=== PATIENT | male | born 1995 | race Two or more races ===

== ENCOUNTER 2023-08-12 17:52 | Emergency (ER) | payer BC ==
[2023-08-12 17:59] VITALS: BP 136/68; PULSE 89; RESP 18; TEMP 99.1; BMI 28.0
[2023-08-12] MEDS ORDERED: ONDANSETRON 4 MG/2 ML VIAL IVPUSH ONE (19:02)
[2023-08-12] MEDS ORDERED: SODIUM CHLORIDE 0.9% 500 ML INFUS.BAG IV ONE (19:02)
[2023-08-12] MEDS ORDERED: KETOROLAC TROMETHAMINE 30 MG/1 ML VIAL IVPUSH ONE (19:02)
[2023-08-12] MEDS ORDERED: FAMOTIDINE 20 MG/50 ML IVPB 20 MG/50 ML MG IVPB ONE ×2 (19:02→19:56)
[2023-08-12 19:16] LABS: BASO % 0.3 % (0-2.0); HEMATOCRIT 46.5 % (35.4-49); HEMOGLOBIN 15.8 GM/dL (11.7-16.9); LYMPH % 7.9 % (8-40); MCH 28.5 pg (25.7-33.7); MEAN CELL VOLUME 83.9 fl (80-96); MEAN PLT VOLUME 8.7 fl (7.5-11.1); MONO % 5.1 % (3.8-10.2); NEUT % 86.7 % (42.8-82.8); PLATELET COUNT 235 10^3/uL (134-434); RBC 5.54 M/mm3 (4.00-5.60); RDW 13.8 % (11.9-15.9); WHITE BLOOD COUNT 16.7 K/mm3 (4.0-10.0)
[2023-08-12 19:47] LABS: POTASSIUM 3.5 mmol/L (3.5-5.1)
[2023-08-12 19:50] LABS: ALBUMIN 4.1 g/dl (3.4-5.0); BLOOD UREA NITROGEN 8.1 mg/dL (7-18)
[2023-08-12 19:53] LABS: CREATININE 0.8 mg/dL (0.55-1.3)
[2023-08-12 19:55] LABS: BILIRUBIN,TOTAL 1.6 mg/dL (0.2-1)
[2023-08-12] MEDS ORDERED: ONDANSETRON 4 MG/2 ML VIAL ONE (19:56)
[2023-08-12] MEDS ORDERED: KETOROLAC TROMETHAMINE 30 MG/1 ML VIAL ONE (19:56)
[2023-08-12 20:30] LABS: HIV INTERPRETATION NEGATIVE (NEGATIVE)
[2023-08-12 20:34] LABS: SYPHILIS W/ RPR CONF REACTIVE (NONREACTIVE)
[2023-08-12 20:57] LABS: EPI CELLS >36 /uL (0-25.1); HYALINE CASTS 14 /uL (0-3.1); PH,URINE 7.5 (5.0-8.0); URINE APPEARANCE CLEAR; URINE BACTERIA 82 /uL (0-1359); URINE BILIRUBIN NEGATIVE (NEGATIVE); URINE COLOR YELLOW; URINE GLUCOSE (UA) NEGATIVE (NEGATIVE); URINE KETONE 1+ (NEGATIVE); URINE LEUK ESTERASE 3+ (NEGATIVE); URINE NITRITE NEGATIVE (NEGATIVE); URINE PROTEIN 1+ (NEGATIVE); URINE RBC 54 /uL (0-23.9); URINE WBC 436 /uL (0-25.8)
[2023-08-12] MEDS ORDERED: DOXYCYCLINE HYCLATE 100 MG CAPSULE PO ONE ×2 (22:00→22:16)
[2023-08-12] MEDS ORDERED: PENICILLIN G BENZATHINE 2,400,000 UNIT/4 ML PFS IM ONE (22:00)
[2023-08-12] MEDS ORDERED: cefTRIAXone SODIUM 1 GM VIAL ONE (22:16)
[2023-08-12] MEDS ORDERED: LIDOCAINE HCL/PF 1% SDV 5ML VIAL ONE (22:42)
== END 2023-08-13 00:06 | disposition home or self-care (01) ==
LOC: JER 17:52
PROC: 3E033GC Introduction of Other Therapeutic Substance into Peripheral Vein, Percutaneous Approach (ICD-10-PCS; principal; 2023-08-12)
PROC: 3E0333Z Introduction of Anti-inflammatory into Peripheral Vein, Percutaneous Approach (ICD-10-PCS; 2023-08-12)
PROC: 3E033GC Introduction of Other Therapeutic Substance into Peripheral Vein, Percutaneous Approach (ICD-10-PCS; 2023-08-12)
PROC: 3E02329 Introduction of Other Anti-infective into Muscle, Percutaneous Approach (ICD-10-PCS; 2023-08-12)
PROC: 3E02329 Introduction of Other Anti-infective into Muscle, Percutaneous Approach (ICD-10-PCS; 2023-08-12)
DX: R10.31 Right lower quadrant pain (principal); N50.811 Right testicular pain; R11.2 Nausea with vomiting, unspecified; A53.9 Syphilis, unspecified
CPT/HCPCS: 36415; 74177-TC; 76870-TC; 80053; 81003; 85025; 86593; 86780; 86803; 87389; 87491; 87591; 99285-25; Q9967

== ENCOUNTER 2023-09-19 07:02 | Emergency (ER) | payer BC ==
[2023-09-19 07:21] VITALS: TEMP 98.3; BMI 28.3
[2023-09-19] MEDS ORDERED: SODIUM CHLORIDE 1,000 ML IV STA (08:08)
[2023-09-19] MEDS ORDERED: ACETAMINOPHEN 1000 MG/100 ML BAG IVPB ONE (08:08)
[2023-09-19] MEDS ORDERED: METOCLOPRAMIDE HCL INJECTION 10 MG/2 ML VIAL IVPUSH ONE (08:09)
[2023-09-19 08:21] LABS: BASO % 0.4 % (0-2.0); EOS % 1.6 % (0-4.5); HEMATOCRIT 42.9 % (35.4-49); HEMOGLOBIN 14.5 GM/dL (11.7-16.9); LYMPH % 24.1 % (8-40); MCH 28.9 pg (25.7-33.7); MCHC 33.7 g/dl (32.0-35.9); MEAN CELL VOLUME 85.8 fl (80-96); MEAN PLT VOLUME 8.4 fl (7.5-11.1); MONO % 7.6 % (3.8-10.2); NEUT % 66.3 % (42.8-82.8); PLATELET COUNT 230 10^3/uL (134-434); RDW 13.9 % (11.9-15.9); WHITE BLOOD COUNT 7.9 K/mm3 (4.0-10.0)
[2023-09-19 08:51] LABS: POTASSIUM 4.4 mmol/L (3.5-5.1)
[2023-09-19] MEDS ORDERED: METOCLOPRAMIDE HCL INJECTION 10 MG/2 ML VIAL ONE (08:52)
[2023-09-19 08:53] LABS: CALCIUM 8.8 mg/dL (8.5-10.1)
[2023-09-19 08:54] LABS: ALBUMIN 3.9 g/dl (3.4-5.0); BLOOD UREA NITROGEN 9.9 mg/dL (7-18)
[2023-09-19 08:57] LABS: CREATININE 0.8 mg/dL (0.55-1.3)
[2023-09-19 09:00] LABS: BILIRUBIN,TOTAL 1.1 mg/dL (0.2-1); TOT PROT 7.4 g/dl (6.4-8.2)
[2023-09-19 09:28] LABS: URINE APPEARANCE CLEAR; URINE BILIRUBIN NEGATIVE (NEGATIVE); URINE COLOR DK YELLOW; URINE GLUCOSE (UA) NEGATIVE (NEGATIVE); URINE KETONE TRACE (NEGATIVE); URINE LEUK ESTERASE NEGATIVE (NEGATIVE); URINE NITRITE NEGATIVE (NEGATIVE); URINE PROTEIN NEGATIVE (NEGATIVE)
[2023-09-19 09:33] LABS: INR 1.13 (0.83-1.09); PROTHROMBIN TIME (PATIENT) 13.1 SEC (9.7-13.0)
[2023-09-19 09:35] LABS: ACTIVATED PTT 33.9 SECONDS (25.2-36.5)
[2023-09-19] MEDS ORDERED: DOXYCYCLINE HYCLATE 100 MG CAPSULE PO ONE ×2 (11:25→11:52)
[2023-09-19] MEDS ORDERED: cefTRIAXone SODIUM 1 GM VIAL ONE (11:51)
[2023-09-19 12:59] VITALS: BP 111/70; PULSE 67; RESP 18
== END 2023-09-19 13:11 | disposition home or self-care (01) ==
LOC: JER 07:02
PROC: 3E033NZ Introduction of Analgesics, Hypnotics, Sedatives into Peripheral Vein, Percutaneous Approach (ICD-10-PCS; principal; 2023-09-19)
PROC: 3E033GC Introduction of Other Therapeutic Substance into Peripheral Vein, Percutaneous Approach (ICD-10-PCS; 2023-09-19)
PROC: 3E02329 Introduction of Other Anti-infective into Muscle, Percutaneous Approach (ICD-10-PCS; 2023-09-19)
PROC: 3E0337Z Introduction of Electrolytic and Water Balance Substance into Peripheral Vein, Percutaneous Approach (ICD-10-PCS; 2023-09-19)
DX: R11.2 Nausea with vomiting, unspecified (principal); R10.31 Right lower quadrant pain; Z20.2 Contact with and (suspected) exposure to infections with a predominantly sexual mode of transmission
CPT/HCPCS: 36415; 74177-TC; 80053; 81003; 85025; 85610; 85730; 87086; 87491; 87591; 99285-25; Q9967